=== PATIENT | female | born 2000 | race Caucasian/White ===

== ENCOUNTER 2020-02-02 17:56 | Emergency (ER) | payer OTHER ==
--- NOTE | 2020-02-02 18:45 | ER Document Report ---
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 Patient states that she has had excessive fatigue for several years that has worsened recently. Patient states that she has insomnia and difficulty waking up in the morning. Patient states that she went to bed last night around 2 AM and woke up at 7:30 AM and then after getting up fell back asleep for about 2-1/2 hours off and on. Patient does acknowledge that her roommate earlier in the year committed suicide. Patient states she has been seeing a therapist although has not followed up with her primary doctor or a mental health provider. Patient denies any history of mental illness. Patient denies any suicidal or homicidal ideation. Patient states her therapist told her there was something beyond normal PTSD or depression going on with her given her symptoms. I have greeted and performed a rapid initial assessment of this patient. A comprehensive ED assessment and evaluation of the patient, analysis of test results and completion of the medical decision making process will be conducted by additional ED providers. - Related Data Allergies/Adverse Reactions: No Known Allergies Allergy (Unverified 02/02/20 18:40) Physical Exam - Vital signs Vitals: Temp Pulse Resp BP Pulse Ox 98.3 F 78 16 123/59 L 100 02/02/20 18:11 02/02/20 18:11 02/02/20 18:11 02/02/20 18:11 02/02/20 18:11 - Neurological Neuro grossly intact: Yes Cognition: Normal [place] Coma Scale Eye Opening: Spontaneous [place] Coma Scale Verbal: Oriented [place] Coma Scale Motor: Obeys Commands Keith Coma Scale Total: 15 - Psychological Associated symptoms: Normal affect, Normal mood Course - Vital Signs Vital signs: Temp Pulse Resp BP Pulse Ox 98.3 F 78 16 123/59 L 100 02/02/20 18:11 02/02/20 18:11 02/02/20 18:11 02/02/20 18:11 02/02/20 18:11
[2020-02-02 19:36] LABS: APPEARANCE,URINE CLEAR; BILIRUBIN,URINE NEGATIVE (NEGATIVE); COLOR,URINE YELLOW; GLUCOSE, URINE NEGATIVE (NEGATIVE); KETONES,URINE NEGATIVE (NEGATIVE); LEUKOCYTE ESTERASE,URINE TRACE (NEGATIVE); NITRITE,URINE NEGATIVE (NEGATIVE); PROTEIN,URINE NEGATIVE (NEGATIVE); URINE SPECIFIC GRAVITY 1.013; UROBILINOGEN,URINE NEGATIVE mg/dL (<2.0)
[2020-02-02 19:37] LABS: ABSOLUTE EOSINOPHILS # (AUTO) 0.1 10^3/uL (0.0-0.6); ABSOLUTE LYMPHOCYTES (AUTO) 2.4 10^3/uL (0.5-4.7); ABSOLUTE MONOCYTES (AUTO) 0.6 10^3/uL (0.1-1.4); ABSOLUTE NEUT (AUTO) 5.2 10^3/uL (1.7-8.2); BASOPHILS % (AUTO) 0.5 % (0-2); EOSINOPHILS % (AUTO) 0.8 % (0-6); HEMATOCRIT 42.8 % (36.0-47.0); HEMOGLOBIN 14.9 g/dL (12.0-15.5); LYMPHOCYTES % (AUTO) 28.8 % (13-45); MEAN CORPUSCULAR HEMOGLOBIN 32.8 pg (27.0-33.4); MEAN CORPUSCULAR HGB CONC 34.9 g/dL (32.0-36.0); MEAN CORPUSCULAR VOLUME 94 fl (80-97); MONOCYTES % (AUTO) 7.2 % (3-13); RED BLOOD COUNT 4.55 10^6/uL (3.72-5.28); RED CELL DISTRIBUTION WIDTH 12.7 % (11.5-14.0); SEGMENTED NEUTROPHILS % (AUTO) 62.7 % (42-78); TOTAL CELLS COUNTED % (AUTO) 100 %; WHITE BLOOD COUNT 8.2 10^3/uL (4.0-10.5)
[2020-02-02 19:53] LABS: URINE AMPHETAMINES SCREEN NEGATIVE; URINE BARBITURATES SCREEN NEGATIVE; URINE BENZODIAZEPINES SCREEN NEGATIVE; URINE COCAINE SCREEN NEGATIVE; URINE MARIJUANA (THC) SCREEN NEGATIVE; URINE METHADONE SCREEN NEGATIVE; URINE PHENCYCLIDINE SCREEN NEGATIVE
[2020-02-02 19:57] LABS: PLATELET COUNT 179 10^3/uL (150-450)
--- NOTE | 2020-02-02 20:03 | PSYCHOLOGICAL NOTE ---
Psych Note - Psych Note Date seen by psych provider: 02/02/20 Time seen by psych provider: 19:00 Psych Note: Reason for Consult:Depression Consent Permissions:None provided Patient arrived to [facility] ED via POV for concerns of generalized weakness. 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 She discloses that she has been struggling with weakness, body aches, difficulty waking, insomnia etc. She reports insomnia and extreme difficulty in wakening has been a custodial issue (and a family issue ie sister and father); however, has become significantly worse over the last few months where it takes her hours to get ready for work and ends up being late (3 hours late and needs people to come and wake her up and sit with her so she does not fall asleep again). She reports that she is seeing a therapist and the therapist is concerned that the symptoms the patient is presenting with could be contributing to medical in addition to mental health. She reports that she has had difficulty getting into a provider and was tired of her command constantly telling her she was "failure to adapt." She reports she came hoping to get answers but understands she still might not have exact reasons but feels that today is the start. Patient reports previous episode when she was in high school of extreme muscle weakness. 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 She reports that muscle weakness is back now and not just in her legs but in her arms. She discloses difficulty with word finding at times and memory. She denies and history of head trauma or remembering being bit by a tick or having any unexplained rashes. Patient is alert and orientated to person, place, time and circumstance. Mood is euthymic with congruent affect. Patient denies suicidal and homicidal ideation. Delusions are absent behaviors congruent with an intact reality based presentation i.e. organized and linear thought process. Eye contact is well maintained. Conversational speech is within normal rate, tone and prosody. Intellectual abilities appear to be within the average range. Attention and concentration are good. Insight, judgment, impulse control are fair. IVC Criteria per [place] GS 122C Dangerous to others Within the relevant past the individual No has inflicted or attempted to inflict or threatened to inflict serious bodily harm on another AND No that there is a reasonable probability that this conduct will be repeated. OR No has acted in such a way as to create a substantial risk of serious bodily harm to another AND No that there is a reasonable probability that this conduct will be repeated. OR No has engaged in extreme destruction of property AND NO that there is a reasonable probability that this conduct will be repeated. Previous episodes of dangerousness to others, when applicable, may be considered when determining reasonable probability of future dangerous conduct. Clear, cogent, and convincing evidence that an individual has committed a homicide in the relevant past is prima facie evidence of dangerousness to others. Dangerous to self Within the relevant past the individual has done any of the following: acted in such a way as to show ALL of the following: No The individual would be unable without care, supervision, and the continued assistance of others not otherwise available, to exercise self- control, judgment, and discretion in the conduct of the individual's daily responsibilities and social relations or to satisfy the individual's need for nourishment, personal or medical care, long term, or self-protection and safety. AND No There is a reasonable probability of the individual suffering serious physical debilitation within the near future unless adequate treatment is given. A showing of behavior that is grossly irrational, of actions that the individual is unable to control, of behavior that is grossly inappropriate to the situation, or of other evidence of severely impaired insight and judgment shall create a prima facie inference that the individual is unable to care for himself or herself. OR No has attempted suicide or threatened suicide AND No that there is a reasonable probability of suicide unless adequate treatment is given OR No has mutilated himself or herself or attempted to mutilate himself or herself AND No that there is a reasonable probability of serious self-mutilation unless adequate treatment is given. NOTE: Previous episodes of dangerousness to self, when applicable, may be considered when determining reasonable probability of physical debilitation, suicide, or self-mutilation. Impression\\plan: Patient is cleared from acute psychiatric services. While patient discloses recent trauma back in June of her roommate committing suicide, patient is already in therapeutic services. Patient came to [facility] ED for assistance in finding answers to physical symptoms. It is unclear at this time if patient's trauma and mental health are the cause of patient's symptoms or if there is possibly underlying medical concerns. Clinician discussed with patient the possibility she will not receive all the answers she is hoping for today. Patient confirms she understands however feels that she is taking a step in the right direction. Clinician discussed journal keeping in the importance of tracking all symptoms both medical and mental health in addition to daily functioning such as foods she is eaten, exercise she is engaged in etc. Patient understands that this is the first step in helping her build background to assist both mental health and medical teams identify patients diagnoses. Clinician discussed grief process to include understanding stages of grief and not having standardized expectations of when "I should get over it." [place]. Patient is recommended to start her journal to keep track of symptoms to better assist identifying patterns and/or triggers. Dr. Armstrong was consulted to care management of this patient; attending physicians in agreement with recommendations and disposition.
[2020-02-02 21:34] LABS: ALBUMIN 4.5 g/dL (3.5-5.0); ALKALINE PHOSPHATASE 75 U/L (38-126); ANION GAP 10 (5-19); ASPARTATE AMINO TRANSFERASE 20 U/L (14-36); BILIRUBIN,DIRECT 0.2 mg/dL (0.0-0.4); BLOOD UREA NITROGEN 13 mg/dL (7-20); CALCIUM 9.6 mg/dL (8.4-10.2); CARBON DIOXIDE 27 mmol/L (22-30); CHLORIDE 103 mmol/L (98-107); CREATINE KINASE < 20 U/L (30-135); GLUCOSE 113 mg/dL (75-110); POTASSIUM 4.2 mmol/L (3.6-5.0); TOTAL PROTEIN 6.8 g/dL (6.3-8.2)
--- NOTE | 2020-02-02 22:11 | ER Document Report ---
ED General - General Chief Complaint: General Weakness Stated Complaint: WEAKNESS Time Seen by Provider: 02/02/20 21:33 Mode of Arrival: Ambulatory Information source: Patient Notes: Patient is a 19-year-old female coming in today with chief complaint of depression, lack of energy, fatigue, whole list of various paresthesias that she has felt in different areas of her body. She is apparently struggling with PTSD. She is seeing a counselor and has an appointment in the near future to see a psychiatrist. By the time I am evaluating her, she has been evaluated by our mental health personnel. She is here to see if there is something medically causing her to feel like this apart from the depression that she is being treated for. She denies suicidal and homicidal ideation. - Related Data Allergies/Adverse Reactions: No Known Allergies Allergy (Unverified 02/02/20 18:40) Past Medical History - General Information source: Patient - Social History Smoking Status: Never Smoker Family History: Other - Father and sister with some mental health history Review of Systems - Review of Systems Notes: Constitutional: No fevers. No chills. Positive generalized weakness and fatigue EENT: No eye redness. No eye pain. No ear pain. No sore throat. Cardiovascular: No chest pain. No palpitations. Respiratory: No cough. No shortness of breath. No respiratory distress. Gastrointestinal: No abdominal pain. No nausea, vomiting, or diarrhea. Genitourinary: Atraumatic. No lesions. No pain. No discharge. Musculoskeletal: Atraumatic. No swelling. No deformities. Skin: No rash or lesions. Lymphatic: No swollen lymph nodes. Neurologic: No headache. No syncope. Positive paresthesias Psychiatric: No suicidal or homicidal ideation. Positive depression Physical Exam - Vital signs Vitals: Temp Pulse Resp BP Pulse Ox 98.3 F 78 16 123/59 L 100 02/02/20 18:11 02/02/20 18:11 02/02/20 18:11 02/02/20 18:11 02/02/20 18:11 Course - Re-evaluation Re-evalutation: 02/02/20 22:10 Work-up has been ordered. Patient has been assessed by mental health personnel. She is not involuntarily committed. She has appropriate follow-up. 02/02/20 22:11 Patient's lab work has resulted. No acute findings. We will have the patient continue on with her follow-up with psychiatrist in the coming days. Come to the emergency department if any acute changes. - Vital Signs Vital signs: Temp Pulse Resp BP Pulse Ox 98.3 F 78 16 123/59 L 100 02/02/20 18:11 02/02/20 18:11 02/02/20 18:11 02/02/20 18:11 02/02/20 18:11 - Laboratory Result Diagrams: 02/02/20 18:55 02/02/20 21:05 Laboratory results interpreted by me: 02/02/20 02/02/20 18:50 21:05 Glucose 113 H Creatine Kinase < 20 L Ur Leukocyte Esterase TRACE H Urine Ascorbic Acid 20 H Discharge - Discharge Clinical Impression: Fatigue Qualifiers: Fatigue type: unspecified Qualified Code(s): R53.83 - Other fatigue Depression Qualifiers: Depression Type: unspecified Qualified Code(s): F32.9 - Major depressive disorder, single episode, unspecified Condition: Good Disposition: HOME, SELF-CARE Instructions: Depression ([facility]) Additional Instructions: Please follow-up at the appointment that you have scheduled with the mental health doctor. If you have any thoughts of hurting yourself or others, please call 911 or come immediately to the emergency department. Referrals: DAMARI KNOX PSYD [ALLIED HEALTH PROFESSIONAL] - Follow up as needed
[2020-02-02 22:27] VITALS: BP 120/60
== END 2020-02-02 22:30 | disposition home or self-care (01) ==
LOC: ER 17:56
DX: F32.9 Major depressive disorder, single episode, unspecified (principal); M62.89 Other specified disorders of muscle; R20.2 Paresthesia of skin; Z81.8 Family history of other mental and behavioral disorders
CPT/HCPCS: 36415; 80053; 80307; 81001; 82550; 84443; 84703; 85025; 99284